=== PATIENT | female | born 1960 | race Two or more races ===

== ENCOUNTER → 2024-08-06 | Outpatient (CLI) | payer MEDICARE, MEDICAID, SELFPAY ==
--- NOTE | 2024-08-06 11:00 | XR_ITS ---
Examination: Breast ultrasound, unilateral, right complete Date and time of exam: August 06, 2024 1112 hours INDICATIONS: Mammogram 06/06/2024 14 mm focal asymmetry upper outer right breast anterior depth Technique: Real-time galdamez scale ultrasonographic imaging performed right breast including all 4 quadrants as well as nipple retroareolar and axillary region. Findings: 10:00 cyst 7 x 5 mm 11:00 cyst 5 x 3 mm No solid nodules IMPRESSION: BI-RADS Category 2: Benign findings
--- NOTE | 2024-08-06 11:30 | XR_ITS ---
Examination: Diagnostic digital mammography, unilateral, right Computer aided detection 3-D breast Tomosynthesis, unilateral Date and time of exam: 29/03/2024 1134 hours INDICATIONS: Mammogram 06/06/2024 14 mm focal asymmetry upper outer right breast anterior depth Technique: Nonmagnified MLO, CC views of the right breast have been obtained, reconstructed from 3-D Tomosynthesis images. R2 computer aided detection program utilized for evaluation of suspicious masses and/or abnormal calcifications. 3-D Tomosynthesis images obtained. Findings: The breast is heterogeneously dense, which may obscure small masses Benign calcifications. No suspicious masses Impression: BI-RADS category 2: Benign findings Return to yearly follow-up mammography
== END | disposition home or self-care (01) ==
PROVIDERS: PCP Nurse Practitioner Family; Referring Provider Nurse Practitioner Family; Visit Provider Nurse Practitioner Family
DX: R92.321 Mammographic fibroglandular density, right breast (principal); R92.1 Mammographic calcification found on diagnostic imaging of breast; N60.01 Solitary cyst of right breast
CPT/HCPCS: 76641; 77061; 77065; G0279

== ENCOUNTER 2024-08-15 06:45 | Day surgery (SDC) | payer MEDICARE, MEDICAID, SELFPAY ==
[2024-08-14 15:09] VITALS: BMI 29.2
[2024-08-15] VITALS (10 sets, daily range): BP systolic 127–161; BP diastolic 83–96; PULSE 79–88; RESP 16–23; TEMP 36.6; O2SAT 93–100; BMI 29.0
[2024-08-15] MEDS: fentaNYL CIT INJ 50 mCg/ML AMP 2ML (ASD USE ONLY) IV (07:27)
[2024-08-15] MEDS: DiphenhydrAMINE INJ 50 MG/ML VIAL 25 MG IV (07:27)
[2024-08-15] MEDS: MIDAZOLAM INJ 1 MG/ML VIAL 2 ML (ASD USE ONLY) 2 MG IV (07:32)
== END 2024-08-15 08:31 | disposition home or self-care (01) ==
PROVIDERS: PCP Nurse Practitioner Family; Referring Provider Surgery; Visit Provider Surgery
PROC: 0DBE8ZX Excision of Large Intestine, Via Natural or Artificial Opening Endoscopic, Diagnostic (ICD-10-PCS; CPT 45380; principal; 2024-08-15 08:00)
DX: K62.89 Other specified diseases of anus and rectum (principal); D12.3 Benign neoplasm of transverse colon; D12.2 Benign neoplasm of ascending colon; K64.1 Second degree hemorrhoids; K57.30 Diverticulosis of large intestine without perforation or abscess without bleeding
CPT/HCPCS: 45385; 45380; A4649; J1200; J2250; J3010

== ENCOUNTER 2024-08-22 07:52 | Outpatient (AMB) | payer MEDICARE, MEDICAID, SELFPAY ==
--- NOTE | 2024-08-21 15:29 | PD.ORTHCLVIS ---
Vital signs 08/22/24 08:02 Height 1.63 m Height Method Stated Weight 78.103 kg Weight Measurement Method Standing Scale BMI 29.4 BP 138/88 H Blood Pressure Source Automatic Cuff Blood Pressure Location Right Upper Arm Position Sitting Respiration 18 Pulse 82 Pulse Source Monitor Temp 97.3 F Temp Source Temporal Artery Scan Pulse Oximetry (%) 96 Oxygen Delivery Method Room Air Med/Allergies Allergies & Medications Allergies Tetanus Vaccines and Toxoid Allergy (Severe, Verified 08/22/24 08:03) Fainting Penicillins Allergy (Unknown, Verified 08/22/24 08:03) Rash Medication Reconciliation diclofenac sodium 1 % topical gel (Voltaren Arthritis Pain) 2 g topical QID PRN pain (scale score 1-3) #100 grams 10/16/23 [Rx Confirmed 08/22/24] meloxicam 7.5 mg tablet 7.5 mg PO QHS #45 tabs 11/09/23 [Rx Confirmed 08/22/24] aspirin 81 mg tablet,delayed release 81 mg PO QDAY #90 tabs 01/08/24 [Rx Confirmed 08/22/24] lisinopril 20 mg tablet 20 mg PO QDAY #90 tabs 01/08/24 [Rx Confirmed 08/22/24] metformin 1,000 mg tablet 1,000 mg PO BID 90 days #180 tabs 01/08/24 [Rx Confirmed 08/22/24] pravastatin 40 mg tablet 40 mg PO QHS #90 tabs 01/08/24 [Rx Confirmed 08/22/24] sertraline 50 mg tablet 50 mg PO QDAY #90 tabs 01/08/24 [Rx Confirmed 08/22/24] acetaminophen 500 mg tablet 1,000 mg (2 x 500 mg) PO q6hr PRN pain #100 tabs 06/17/24 [Rx Confirmed 08/22/24] meloxicam 7.5 mg tablet 7.5 mg PO QDAY #45 tabs 08/22/24 [Rx Confirmed 08/22/24] Subjective Visit Visit for: follow up visit Immunization / Flu Flu Vaccine in the Last 12 Months: No Flu Vaccine Exclusion Criteria: Refused by Patient History of Present Illness Chief complaint: KNEE PAIN Kassy is a pleasant 63-year-old female who presents today for evaluation of her right knee. She has had knee pain for 6 months. Atraumatic. The pain is primarily on the medial aspect of her knee. She has pain with weightbearing and when walking. Has not had any injections. She has tried ibuprofen and meloxicam. The last injection is still working Personal History Red flag PMH: none Pain Pain level (0-10): 7 Pain duration: ALL DAY Pain location: outside (lateral), anterior and posterior Pain quality: sharp, dull and aching Pain timing: night, increases with activity and stairs Associated signs & symptoms: weakness Ambulatory data Ambulatory device: none Treatments Improvement with previous injections: Yes Improvement with PT: No Improvement with NSAIDS: no Review of Systems Review of Systems: All systems negative unless otherwise noted in HPI. Exam Exam Patient is in no acute distress and is cooperative with the examination today. Breathing is nonlabored. Patient has a normal mood and affect. Bilateral extremities were evaluated and demonstrates sensation intact to light touch. Palpable pedal pulses are present. No significant edema is present. Bilateral hips were examined. The patient has no pain with log roll of the hips. Internal rotation to 30 degrees and external rotation to 30 degrees is painless. Negative FADIR. Left knee was examined today. The left knee is in reasonable alignment. Range of motion from 0-120 degrees. Knee is stable to varus and valgus as well as AP translation with <5mm. Patient has a negative McMurrays. There is no pain with patellofemoral compression and no crepitus noted. The knee is nontender to palpation. The right knee was also examined. The right knee is in [varus] alignment. Range of motion from [0-115] degrees. Knee is stable to varus and valgus as well as AP translation with <5mm. Patient has a [negative] McMurrays. There is [no] pain with patellofemoral compression and [no] crepitus noted. The knee is [tender] to palpation [medially]. X-rays demonstrate right knee arthritis Of moderate severity. Assessment and Plan Problem List (1) Osteoarthritis of right knee: Qualifiers: Osteoarthritis type: unspecified Qualified Code(s): M17.11 - Unilateral primary osteoarthritis, right knee Status: Acute Plan: 63-year-old female with right knee pain and medial tenderness. She has right knee moderate osteoarthritis. DShe did really well with the last injection and would like to see how long it works for.. She reports that she is still doing well and has minimal pain. We will see her back for repeat injection in 2 months Advanced Care Planning Discussion Advance care planning discussed with:: patient Office Procedures GNS Level of Care Nursing/Assessment Patient Status: Established Patient Nursing Assessment/Reassesment: Medication Reconciliation, Update PMH in EMR and Vital Signs Coordination of Care: Complex Care and Chronic Disease 1-5, Education Complex Pt/Fam, Consent,records obtained, informed consent, Results/Orders obtained and Staff clarify orders Established Patient Charge Established Patient Point Assignment: 95 Established Patient Point Charge: EP Level 3 (80-115) Past Medical History Past Medical History Have you ever been diagnosed with any of the following: Neurological Problems Seizures: No Cardiology Problems Hypercholesterolemia: Yes Congestive Heart Failure: No Hypertension: Yes Respiratory Problems Chronic Obstructive Pulmonary Disease (COPD): No Smoking: No Smoking Exposure: No Genital/Urinary Problems Renal Disease: No Endocrine Problems Diabetes Mellitus Type 1: No Diabetes Mellitus Type 2: Yes Other Problems Hospitalization: No Down Syndrome: No Developmental Delay: No Falls: No Blood Transfusions: No Blood Transfusion Reaction: No Anesthesia Reactions: No Chicken Pox: Yes
[2024-08-22 08:02] VITALS: BP 138/88; PULSE 82; RESP 18; TEMP 36.3; O2SAT 96; BMI 29.4
== END 2024-08-22 08:02 | disposition home or self-care (01) ==
LOC: HODSRG 07:52
PROVIDERS: PCP Nurse Practitioner Primary Care; Referring Provider Nurse Practitioner Primary Care; Supervising Provider Orthopaedic Surgery Adult Reconstructive Orthopaedic Surgery; Visit Provider Orthopaedic Surgery Adult Reconstructive Orthopaedic Surgery
DX: M17.11 Unilateral primary osteoarthritis, right knee (principal); I10 Essential (primary) hypertension; E78.00 Pure hypercholesterolemia, unspecified
CPT/HCPCS: 99213; G0463

== ENCOUNTER → 2024-08-25 | Outpatient (BNVA) | payer MEDICARE, MEDICAID, SELFPAY | END | disposition home or self-care (01) | PROVIDERS: PCP Nurse Practitioner Family; Referring Provider Nurse Practitioner Family; Visit Provider Nurse Practitioner Family | DX: Z71.2 Person consulting for explanation of examination or test findings (principal); R92.8 Other abnormal and inconclusive findings on diagnostic imaging of breast | CPT/HCPCS: 99212; G0463 ==

== ENCOUNTER → 2024-10-17 | Outpatient (BNVA) | payer MEDICARE, MEDICAID, SELFPAY | END | disposition home or self-care (01) | PROVIDERS: PCP Nurse Practitioner Family; Referring Provider Nurse Practitioner Family; Visit Provider Nurse Practitioner Family | DX: Z71.2 Person consulting for explanation of examination or test findings (principal); E11.9 Type 2 diabetes mellitus without complications; I10 Essential (primary) hypertension; E78.5 Hyperlipidemia, unspecified | CPT/HCPCS: 99212; G0463 ==

== ENCOUNTER 2024-10-23 09:17 | Outpatient (AMB) | payer MEDICARE, MEDICAID, SELFPAY ==
[2024-10-23 09:24] VITALS: BP 148/89; PULSE 78; RESP 18; TEMP 36.7; O2SAT 95; BMI 29.9
--- NOTE | 2024-10-23 09:24 | ORTHONT_ITS ---
Vital signs 10/23/24 09:24 Height 1.63 m Height Method Stated Weight 79.605 kg Weight Measurement Method Standing Scale BMI 29.9 BP 148/89 H Blood Pressure Source Automatic Cuff Blood Pressure Location Left Upper Arm Position Sitting Respiration 18 Pulse 78 Pulse Source Monitor Temp 98.1 F Temp Source Temporal Artery Scan Pulse Oximetry (%) 95 Oxygen Delivery Method Room Air Med/Allergies Allergies & Medications Allergies Tetanus Vaccines and Toxoid Allergy (Severe, Verified 10/23/24 09:25) Fainting Penicillins Allergy (Unknown, Verified 10/23/24 09:25) Rash Medication Reconciliation meloxicam 7.5 mg tablet 7.5 mg PO QHS #45 tabs 11/09/23 [Rx Confirmed 10/23/24] Held on 08/15/24. Instructions: Resume on 08/18/24. aspirin 81 mg tablet,delayed release 81 mg PO QDAY #90 tabs 01/08/24 [Rx Confirmed 10/23/24] Held on 08/15/24. Instructions: Resume on 08/18/24. lisinopril 20 mg tablet 20 mg PO QDAY #90 tabs 01/08/24 [Rx Confirmed 10/23/24] metformin 1,000 mg tablet 1,000 mg PO BID 90 days #180 tabs 01/08/24 [Rx Confirmed 10/23/24] pravastatin 40 mg tablet 40 mg PO QHS #90 tabs 01/08/24 [Rx Confirmed 10/23/24] sertraline 50 mg tablet 50 mg PO QDAY #90 tabs 01/08/24 [Rx Confirmed 10/23/24] acetaminophen 500 mg tablet 1,000 mg (2 x 500 mg) PO q6hr PRN pain #100 tabs 06/17/24 [Rx Confirmed 10/23/24] Exam Exam Patient is in no acute distress and is cooperative with the examination today. Breathing is nonlabored. Patient has a normal mood and affect. Bilateral extremities were evaluated and demonstrates sensation intact to light touch. Palpable pedal pulses are present. No significant edema is present. Bilateral hips were examined. The patient has no pain with log roll of the hips. Internal rotation to 30 degrees and external rotation to 30 degrees is painless. Negative FADIR. Left knee was examined today. The left knee is in reasonable alignment. Range of motion from 0-120 degrees. Knee is stable to varus and valgus as well as AP translation with <5mm. Patient has a negative McMurrays. There is no pain with patellofemoral compression and no crepitus noted. The knee is nontender to palpation. The right knee was also examined. The right knee is in [varus] alignment. Range of motion from [0-115] degrees. Knee is stable to varus and valgus as well as AP translation with <5mm. Patient has a [negative] McMurrays. There is [no] pain with patellofemoral compression and [no] crepitus noted. The knee is [tender] to palpation [medially]. X-rays demonstrate right knee arthritis Of moderate severity. Assessment and Plan Problem List (1) Osteoarthritis of right knee: Qualifiers: Osteoarthritis type: unspecified Qualified Code(s): M17.11 - Unilateral primary osteoarthritis, right knee Status: Acute Plan: 63-year-old female with right knee pain and medial tenderness. She has right knee moderate osteoarthritis. She did well with the last injection and would like another 1 today Recommend knee cortisone injection as patient would like to proceed with conservative treatment at this time. The risks and benefits of the procedure were reviewed with the patient and patient gave verbal consent to continue with the procedure. Procedure: performed by Dr. Whitt Using sterile technique the Right knee was thoroughly prepped with alcohol, and approximately 1 cc of Kenalog 40 mg/mL and 4 cc of 1% lidocaine was injected without resistance into the medial tibial femoral joint space. The patient tolerated the procedure. Advanced Care Planning Discussion Advance care planning discussed with:: patient Office Procedures GNS Level of Care Nursing/Assessment Patient Status: Established Patient Nursing Assessment/Reassesment: Medication Reconciliation, Update PMH in EMR and Vital Signs Coordination of Care: Complex Care and Chronic Disease 1-5, Education Complex Pt/Fam, Consent,records obtained, informed consent, Results/Orders obtained and Staff clarify orders Special Needs: Language special needs Established Patient Charge Established Patient Point Assignment: 95 Established Patient Point Charge: EP Level 3 (80-115) Medication Given Medication Given Medication Given: Yes Documented Dose Given: 4 Route: Infiitration Medication Given Medication Given Medication Given: Yes Documented Dose Given: 1 Route: Infiitration Office Meds Xylocaine 10 mg/mL (1 %) injection solution Performing Provider: Yandel Whitt MD Performing Location: [facility] Administered by: Yandel Whitt MD on 10/23/24 10:21 Dose Route Admin Location Dispensed Lot Number Expiration Date [facility] Bow [employer] Machine Tender 20 mL Infiltration 20 mL [id number] RYAN [employer]HENG KAVALENT[employer]N triamcinolone acetonide 40 mg/mL suspension for injection Performing Provider: Yandel Whitt MD Performing Location: [facility] Administered by: Yandel Whitt MD on 10/23/24 10:21 Dose Route Admin Location Dispensed Lot Number Expiration Date [facility] Bow [employer] Machine Tender 40 mg intra-articular RIGHT KNEE 1 mL [id number] 01/08/26 6767-5544-04 TEVA PARENTERAL [place] Intake Visit Data Collection New Patient or Established: Established Patient (seen at [facility] within 3 years) Reason for Visit:: 2 MONTH F/U RIGHT KNEE Seen by Clinical Staff ONLY (RN/MA): No Hub Inventory Specialist Required: Yes PCP or OBGYN visit in last 3 months: Yes Hx Now: No Do You Feel Safe at Home: Yes Authorities Contacted: N/A Questionairres Past Medical History Past Medical History Have you ever been diagnosed with any of the following: Neurological Problems Seizures: No Cardiology Problems Hypercholesterolemia: Yes Congestive Heart Failure: No Hypertension: Yes Respiratory Problems Chronic Obstructive Pulmonary Disease (COPD): No Smoking: No Smoking Exposure: No Genital/Urinary Problems Renal Disease: No Endocrine Problems Diabetes Mellitus Type 1: No Diabetes Mellitus Type 2: Yes Other Problems Hospitalization: No Down Syndrome: No Developmental Delay: No Falls: No Blood Transfusions: No Blood Transfusion Reaction: No Anesthesia Reactions: No Chicken Pox: Yes Subjective Visit Visit for: follow up visit and knee (RIGHT) Immunization / Flu Flu Vaccine in the Last 12 Months: No Flu Vaccine Exclusion Criteria: No Exclusion Criteria History of Present Illness Chief complaint: right knee Patient is a 58-year-old female with right knee pain and right knee arthritis. We previously did an injection and it llasted for quite a while. She would like the knee injection today. Pain Pain level (0-10): 5 Pain duration: ON AND OFF Pain location: anterior Pain quality: dull and aching Pain timing: night, increases with activity and stairs Associated signs & symptoms: numbness Ambulatory data Ambulatory device: none Treatments Improvement with previous injections: No Improvement with PT: No Improvement with NSAIDS: no Review of Systems Review of Systems: All systems negative unless otherwise noted in HPI.
== END 2024-10-23 09:42 | disposition home or self-care (01) ==
LOC: HODSRG 09:17
PROVIDERS: PCP Nurse Practitioner Family; Referring Provider Nurse Practitioner Family; Supervising Provider Orthopaedic Surgery Adult Reconstructive Orthopaedic Surgery; Visit Provider Orthopaedic Surgery Adult Reconstructive Orthopaedic Surgery
DX: M17.11 Unilateral primary osteoarthritis, right knee (principal); M25.561 Pain in right knee; I10 Essential (primary) hypertension; E78.00 Pure hypercholesterolemia, unspecified
CPT/HCPCS: 20610; 99213; J3301; J3490; G0463

== ENCOUNTER → 2025-03-18 | Outpatient (BNVA) | payer MEDICARE, MEDICAID, SELFPAY | END | disposition home or self-care (01) | PROVIDERS: PCP Nurse Practitioner Primary Care; Referring Provider Nurse Practitioner Primary Care; Visit Provider Nurse Practitioner Primary Care | DX: Z71.2 Person consulting for explanation of examination or test findings (principal); E11.9 Type 2 diabetes mellitus without complications; E78.5 Hyperlipidemia, unspecified | CPT/HCPCS: 99212; G0463 ==

== ENCOUNTER 2025-03-26 09:41 | Outpatient (AMB) | payer MEDICARE, MEDICAID, SELFPAY ==
--- NOTE | 2025-03-26 10:02 | PD.ORTHCLVIS ---
Vital signs 03/26/25 10:11 Height 1.63 m Height Method Measured Weight 79.464 kg Weight Measurement Method Standing Scale BMI 29.9 BP 160/92 H Blood Pressure Source Automatic Cuff Blood Pressure Location Left Upper Arm Position Sitting Respiration 18 Pulse 76 Pulse Source Monitor Temp 97.7 F Temp Source Temporal Artery Scan Pulse Oximetry (%) 95 Oxygen Delivery Method Room Air Med/Allergies Allergies & Medications Allergies Tetanus Vaccines and Toxoid Allergy (Severe, Verified 03/26/25 10:26) Fainting Penicillins Allergy (Unknown, Verified 03/26/25 10:26) Rash Medication Reconciliation meloxicam 7.5 mg tablet 7.5 mg PO QHS #45 tabs 11/09/23 [Rx Confirmed 03/26/25] Held on 08/15/24. Instructions: Resume on 08/18/24. sertraline 50 mg tablet 50 mg PO QDAY #90 tabs 01/08/24 [Rx Confirmed 03/26/25] acetaminophen 500 mg tablet 1,000 mg (2 x 500 mg) PO q6hr PRN pain #100 tabs 06/17/24 [Rx Confirmed 03/26/25] aspirin 81 mg tablet,delayed release 81 mg PO QDAY #90 tabs 03/18/25 [Rx Confirmed 03/26/25] lisinopril 20 mg tablet 20 mg PO QDAY #90 tabs 03/18/25 [Rx Confirmed 03/26/25] metformin 1,000 mg tablet 1,000 mg PO BID 90 days #180 tabs 03/18/25 [Rx Confirmed 03/26/25] pravastatin 40 mg tablet 40 mg PO QHS #90 tabs 03/18/25 [Rx Confirmed 03/26/25] Exam Exam Patient is in no acute distress and is cooperative with the examination today. Breathing is nonlabored. Patient has a normal mood and affect. Bilateral extremities were evaluated and demonstrates sensation intact to light touch. Palpable pedal pulses are present. No significant edema is present. Bilateral hips were examined. The patient has no pain with log roll of the hips. Internal rotation to 30 degrees and external rotation to 30 degrees is painless. Negative FADIR. Left knee was examined today. The left knee is in reasonable alignment. Range of motion from 0-120 degrees. Knee is stable to varus and valgus as well as AP translation with <5mm. Patient has a negative McMurrays. There is no pain with patellofemoral compression and no crepitus noted. The knee is nontender to palpation. The right knee was also examined. The right knee is in [varus] alignment. Range of motion from [0-115] degrees. Knee is stable to varus and valgus as well as AP translation with <5mm. Patient has a [negative] McMurrays. There is [no] pain with patellofemoral compression and [no] crepitus noted. The knee is [tender] to palpation [medially]. X-rays demonstrate right knee arthritis Of moderate severity. Assessment and Plan Problem List (1) Osteoarthritis of right knee: Qualifiers: Osteoarthritis type: unspecified Qualified Code(s): M17.11 - Unilateral primary osteoarthritis, right knee Status: Acute Plan: 63-year-old female with right knee pain and medial tenderness. She has right knee moderate osteoarthritis. She did well with the last injection and would like another 1 today Recommend knee cortisone injection as patient would like to proceed with conservative treatment at this time. The risks and benefits of the procedure were reviewed with the patient and patient gave verbal consent to continue with the procedure. Procedure: performed by Dr. Whitt Using sterile technique the Right knee was thoroughly prepped with alcohol, and approximately 1 cc of Kenalog 40 mg/mL and 4 cc of 1% lidocaine was injected without resistance into the medial tibial femoral joint space. The patient tolerated the procedure. Advanced Care Planning Discussion Advance care planning discussed with:: patient Office Procedures GNS Level of Care Nursing/Assessment Patient Status: Established Patient Nursing Assessment/Reassesment: Medication Reconciliation, Update PMH in EMR and Vital Signs Coordination of Care: Complex Care and Chronic Disease 1-5, Education Complex Pt/Fam, Consent,records obtained, informed consent, Lab and Imaging orders, Results/Orders obtained and Staff clarify orders Special Needs: Language special needs Established Patient Charge Established Patient Point Assignment: 110 Established Patient Point Charge: EP Level 3 (80-115) Surgical Proc/IM SQ injection Major Surgical Procedure: Yes (KNEE INJECTION) Medication Given Medication Given Medication Given: Yes Documented Dose Given: 4 Route: Infiitration Medication Given Medication Given Medication Given: Yes Documented Dose Given: 1 Route: Infiitration Office Meds Xylocaine 10 mg/mL (1 %) injection solution Performing Provider: Yandel Whitt MD Performing Location: [facility] Administered by: Yandel Whitt MD on 03/26/25 10:27 Dose Route Admin Location Dispensed Lot Number Expiration Date [facility] Status Controller 20 mL Infiltration KNEE 20 mL [id number] 06/09/28 [facility]137-[facility] triamcinolone acetonide 40 mg/mL suspension for injection Performing Provider: Yandel Whitt MD Performing Location: [facility] Administered by: Yandel Whitt MD on 03/26/25 10:27 Dose Route Admin Location Dispensed Lot Number Expiration Date [facility] Status Controller 40 mg intra-articular KNEE 1 mL [id number] 10/10/26 67513-943-65 TRINIDAD MYERS [place] Intake Visit Data Collection New Patient or Established: Established Patient (seen at [facility] within 3 years) Reason for Visit:: RIGHT KNEE PAIN Seen by Clinical Staff ONLY (RN/MA): No Tissue Coordinator Required: Yes PCP or OBGYN visit in last 3 months: Yes Hx Now: No Do You Feel Safe at Home: Yes Authorities Contacted: N/A Questionairres Past Medical History Past Medical History Have you ever been diagnosed with any of the following: Neurological Problems Seizures: No Cardiology Problems Hypercholesterolemia: Yes Congestive Heart Failure: No Hypertension: Yes Respiratory Problems Chronic Obstructive Pulmonary Disease (COPD): No Smoking: No Smoking Exposure: No Genital/Urinary Problems Renal Disease: No Endocrine Problems Diabetes Mellitus Type 1: No Diabetes Mellitus Type 2: Yes Other Problems Hospitalization: No Down Syndrome: No Developmental Delay: No Falls: No Blood Transfusions: No Blood Transfusion Reaction: No Anesthesia Reactions: No Chicken Pox: Yes Subjective Visit Visit for: follow up visit and knee (RIGHT) Immunization / Flu Flu Vaccine in the Last 12 Months: No Flu Vaccine Exclusion Criteria: No Exclusion Criteria History of Present Illness Chief complaint: right knee Patient is a 58-year-old female with right knee pain and right knee arthritis. We previously did an injection and it lasted for quite a while. She would like a repeat knee injection today. Pain Pain level (0-10): 5 Pain duration: ON AND OFF Pain location: anterior Pain quality: dull and aching Pain timing: night, increases with activity and stairs Associated signs & symptoms: numbness Ambulatory data Ambulatory device: none Treatments Improvement with previous injections: No Improvement with PT: No Improvement with NSAIDS: no Review of Systems Review of Systems: All systems negative unless otherwise noted in HPI.
[2025-03-26 10:11] VITALS: BP 160/92; PULSE 76; RESP 18; TEMP 36.5; O2SAT 95; BMI 29.9
--- NOTE | 2025-03-26 10:14 | XR_ITS ---
Examination: Bilateral knees single view PA lateral axial right knee 3 views TECHNIQUE: Bilateral AP knees standing single view Right knee PA flexion standing, lateral standing, axial right knee 3 views total 4 views Date and time: March 26, 2025 1045 hours INDICATIONS: Right knee pain beginning 2 years ago. FINDINGS: Prominent osteopenia. Advanced narrowing medial joint space right knee Moderate osteoarthritis right patellofemoral joint Moderate narrowing medial joint space left knee IMPRESSION: Advanced narrowing medial joint space right knee
== END 2025-03-26 10:20 | disposition home or self-care (01) ==
LOC: HODSRG 09:41
PROVIDERS: PCP Nurse Practitioner Family; Referring Provider Nurse Practitioner Family; Supervising Provider Orthopaedic Surgery Adult Reconstructive Orthopaedic Surgery; Visit Provider Orthopaedic Surgery Adult Reconstructive Orthopaedic Surgery
DX: M17.11 Unilateral primary osteoarthritis, right knee (principal); I10 Essential (primary) hypertension; E78.00 Pure hypercholesterolemia, unspecified; E11.9 Type 2 diabetes mellitus without complications; M25.561 Pain in right knee
CPT/HCPCS: 20610; 73564; 99213; J3301; J3490; G0463

== ENCOUNTER 2025-07-02 13:57 | Outpatient (AMB) | payer MEDICARE, MEDICAID, SELFPAY ==
--- NOTE | 2025-07-02 14:37 | ORTHONT_ITS ---
Vital signs 07/02/25 14:42 Height 1.63 m Height Method Measured Weight 79.464 kg Weight Measurement Method Standing Scale BMI 29.9 BP 138/75 H Blood Pressure Source Automatic Cuff Blood Pressure Location Left Upper Arm Position Sitting Respiration 18 Pulse 80 Pulse Source Monitor Temp 97.6 F Temp Source Temporal Artery Scan Pulse Oximetry (%) 95 Oxygen Delivery Method Room Air Med/Allergies Allergies & Medications Allergies Tetanus Vaccines and Toxoid Allergy (Severe, Verified 07/02/25 14:43) Fainting Penicillins Allergy (Unknown, Verified 07/02/25 14:43) Rash Medication Reconciliation meloxicam 7.5 mg tablet 7.5 mg PO QHS #45 tabs 11/09/23 [Rx Confirmed 07/02/25] Held on 08/15/24. Instructions: Resume on 08/18/24. sertraline 50 mg tablet 50 mg PO QDAY #90 tabs 01/08/24 [Rx Confirmed 07/02/25] acetaminophen 500 mg tablet 1,000 mg (2 x 500 mg) PO q6hr PRN pain #100 tabs 06/17/24 [Rx Confirmed 07/02/25] aspirin 81 mg tablet,delayed release 81 mg PO QDAY #90 tabs 03/18/25 [Rx Confirmed 07/02/25] lisinopril 20 mg tablet 20 mg PO QDAY #90 tabs 03/18/25 [Rx Confirmed 07/02/25] metformin 1,000 mg tablet 1,000 mg PO BID 90 days #180 tabs 03/18/25 [Rx Confirmed 07/02/25] pravastatin 40 mg tablet 40 mg PO QHS #90 tabs 03/18/25 [Rx Confirmed 07/02/25] Exam Exam Patient is in no acute distress and is cooperative with the examination today. Breathing is nonlabored. Patient has a normal mood and affect. Bilateral extremities were evaluated and demonstrates sensation intact to light touch. Palpable pedal pulses are present. No significant edema is present. Bilateral hips were examined. The patient has no pain with log roll of the hips. Internal rotation to 30 degrees and external rotation to 30 degrees is painless. Negative FADIR. Left knee was examined today. The left knee is in reasonable alignment. Range of motion from 0-120 degrees. Knee is stable to varus and valgus as well as AP translation with <5mm. Patient has a negative McMurrays. There is no pain with patellofemoral compression and no crepitus noted. The knee is nontender to palpation. The right knee was also examined. The right knee is in [varus] alignment. Range of motion from [0-115] degrees. Knee is stable to varus and valgus as well as AP translation with <5mm. Patient has a [negative] McMurrays. There is [no] pain with patellofemoral compression and [no] crepitus noted. The knee is [tender] to palpation [medially]. X-rays demonstrate right knee arthritis Of significant severity with complete obliteration of the medial joint space Assessment and Plan Problem List (1) Osteoarthritis of right knee: Qualifiers: Osteoarthritis type: unspecified Qualified Code(s): M17.11 - Unilateral primary osteoarthritis, right knee Status: Acute Plan: 63-year-old female with right knee pain and medial tenderness. She has right knee severe osteoarthritis. She no longer wants injections as they are not providing great relief. We thus consider total knee replacement as a reasonable option. She is already tried anti-inflammatories The nature and purpose of the total knee replacement, alternative method(s) of treatment, the material risks involved, and the possibility of complications were fully explained to the patient. The patient does NOT have any of the following contraindications to TKA: - Active infection of the knee joint, OR - Active systemic bacteremia, OR - Active skin infection or open wound at surgical site, OR - Neuropathic arthritis, OR - Severe, rapidly progressive neurological disease, OR - Severe medical condition that makes risks of surgery outweigh the potential benefit The patient was told the most common risks and complications associated with a total knee replacement include, but are not limited to: blood clots in the leg, fatal pulmonary embolism, dislocation of the prosthesis, intraoperative and postoperative fractures of the femur or tibia, infection, failure of the prosthesis or grafting materials, complications from anesthesia, reactions to blood transfusions, postoperative leg length inequality, instability of the knee replacement, nerve damage or injury, vascular injury, delayed wound healing, infection, other injury or even . In addition, there are risks associated with anesthesia given during this operation. Also, the patient was told that after undergoing a total knee replacement there may still be persistent pain or disability. The patient was informed that the success of this operation in part depends upon the mechanical devices which are going to be implanted and that these devices can fail or malfunction, and may need to be repaired or replaced and there are no guarantees as to the longevity of this device or its parts and that it or its parts could fail prematurely. The patient was also notified that during the course of surgery, there may be a need to use bone graft from donors, and that any bone graft used will be carefully screened for communicable diseases, including AIDS, hepatitis, Andrew-Creutzfeldt, or other diseases, but despite the screening procedures, there is a small chance that they could contract one of these diseases. Finally, the patient was asked to follow completely and fully with all advice and recommended treatments, and that recovery and ultimate outcome are affected by their compliance with recommended treatment. We discussed the risks, benefits and treatment alternatives, and the patient is interested in proceeding with surgery. We will try to set this up as expeditiously as possible. Advanced Care Planning Discussion Advance care planning discussed with:: patient Office Procedures GNS Level of Care Nursing/Assessment Patient Status: Established Patient Nursing Assessment/Reassesment: Medication Reconciliation, Update PMH in EMR and Vital Signs Coordination of Care: Complex Care and Chronic Disease 1-5, Education Complex Pt/Fam, Consent,records obtained, informed consent, Results/Orders obtained and Staff clarify orders Special Needs: Language special needs Established Patient Charge Established Patient Point Assignment: 95 Established Patient Point Charge: EP Level 3 (80-115) MA Intake Visit Data Collection New Patient or Established: Established Patient (seen at [facility] within 3 years) Reason for Visit:: 3 MONTH KNEE INJECTIONS/XRAY RESULTS Seen by Clinical Staff 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 PCP or OBGYN visit in last 3 months: Yes Hx Now: No Do You Feel Safe at Home: Yes Authorities Contacted: N/A Questionairres Past Medical History Past Medical History Have you ever been diagnosed with any of the following: Neurological Problems Seizures: No Cardiology Problems Hypercholesterolemia: Yes Congestive Heart Failure: No Hypertension: Yes Respiratory Problems Chronic Obstructive Pulmonary Disease (COPD): No Smoking: No Smoking Exposure: No Genital/Urinary Problems Renal Disease: No Endocrine Problems Diabetes Mellitus Type 1: No Diabetes Mellitus Type 2: Yes Other Problems Hospitalization: No Down Syndrome: No Developmental Delay: No Falls: No Blood Transfusions: No Blood Transfusion Reaction: No Anesthesia Reactions: No Chicken Pox: Yes Subjective Visit Visit for: follow up visit and knee Immunization / Flu Flu Vaccine in the Last 12 Months: No Flu Vaccine Exclusion Criteria: No Exclusion Criteria History of Present Illness Chief complaint: RIGHT KNEE INJECTIONS/XRAY RESULTS Patient is a 64-year-old female with right knee pain and right knee arthritis. We previously did an injection and it lasted for quite a while. The last injections have provided more than 3 months of relief. SHe reports the pain is more that she wants to put up with and wants to pursue right total knee replacement. She has had multiple injections and anti-inflammatories previously Pain Pain level (0-10): 10 Pain duration: ON AND OFF Pain location: anterior Pain quality: dull and aching Pain timing: night, increases with activity and stairs Associated signs & symptoms: numbness Ambulatory data Ambulatory device: none Treatments Improvement with previous injections: No Improvement with PT: No Improvement with NSAIDS: no Review of Systems Review of Systems: All systems negative unless otherwise noted in HPI.
[2025-07-02 14:42] VITALS: BP 138/75; PULSE 80; RESP 18; TEMP 36.4; O2SAT 95; BMI 29.9
== END 2025-07-02 14:57 | disposition home or self-care (01) ==
LOC: HODSRG 13:57
PROVIDERS: PCP Nurse Practitioner Family; Referring Provider Nurse Practitioner Family; Supervising Provider Orthopaedic Surgery Adult Reconstructive Orthopaedic Surgery; Visit Provider Orthopaedic Surgery Adult Reconstructive Orthopaedic Surgery
DX: M25.561 Pain in right knee (principal); M17.11 Unilateral primary osteoarthritis, right knee; I10 Essential (primary) hypertension; E11.9 Type 2 diabetes mellitus without complications; Z79.84 Long term (current) use of oral hypoglycemic drugs
CPT/HCPCS: 99213; G0463

== ENCOUNTER → 2025-07-23 | Outpatient (BNVA) | payer MEDICARE, MEDICAID, SELFPAY | END | disposition home or self-care (01) | PROVIDERS: PCP Nurse Practitioner Family; Referring Provider Nurse Practitioner Family; Visit Provider Nurse Practitioner Family | DX: Z01.818 Encounter for other preprocedural examination (principal); S83.203D Other tear of unspecified meniscus, current injury, right knee, subsequent encounter; X58.XXXD Exposure to other specified factors, subsequent encounter; E78.5 Hyperlipidemia, unspecified; E11.9 Type 2 diabetes mellitus without complications; I10 Essential (primary) hypertension; Z11.3 Encounter for screening for infections with a predominantly sexual mode of transmission; Z23 Encounter for immunization; Z12.39 Encounter for other screening for malignant neoplasm of breast | CPT/HCPCS: 90471; 90677; 90686; 93005; 99215; G0008; G0009 ==

== ENCOUNTER → 2025-08-04 | Outpatient (BNVA) | payer MEDICARE, MEDICAID, SELFPAY | END | disposition home or self-care (01) | PROVIDERS: PCP Nurse Practitioner Family; Referring Provider Nurse Practitioner Family; Visit Provider Nurse Practitioner Family | DX: S83.203D Other tear of unspecified meniscus, current injury, right knee, subsequent encounter (principal); X58.XXXD Exposure to other specified factors, subsequent encounter; E78.5 Hyperlipidemia, unspecified; Z01.818 Encounter for other preprocedural examination; E11.9 Type 2 diabetes mellitus without complications; I10 Essential (primary) hypertension | CPT/HCPCS: 99214 ==

== ENCOUNTER → 2025-08-10 | Outpatient (BNVA) | payer MEDICARE, MEDICAID, SELFPAY | END | disposition home or self-care (01) | PROVIDERS: PCP Nurse Practitioner Family; Referring Provider Nurse Practitioner Family; Visit Provider Nurse Practitioner Family | DX: Z71.2 Person consulting for explanation of examination or test findings (principal); I10 Essential (primary) hypertension; R79.1 Abnormal coagulation profile | CPT/HCPCS: 99214 ==

== ENCOUNTER → 2025-08-24 | Outpatient (BNVA) | payer MEDICARE, MEDICAID, SELFPAY | END | disposition home or self-care (01) | PROVIDERS: PCP Nurse Practitioner Family; Referring Provider Nurse Practitioner Family; Visit Provider Nurse Practitioner Family | DX: I10 Essential (primary) hypertension (principal) | CPT/HCPCS: 99214 ==

== ENCOUNTER → 2025-09-01 | Outpatient (CLI) | payer MEDICARE, MEDICAID, SELFPAY ==
--- NOTE | 2025-09-01 13:00 | XR_ITS ---
Examination: CT right lower extremity without intravenous contrast, 2-D sagittal reconstructions. 2-D coronal reconstructions. 3-D reconstructions. Date and time of exam: September 01, 2025, 1317 hours INDICATIONS: Diagnosis unilateral primary osteoarthritis right knee right knee pain 2 years CTDI: vol (mGy): 12.8 DLP: (mGycm): 908 Technique: Multiple 1.25 mm axial sections of the right lower extremity without intravenous contrast have been obtained. 2-D sagittal and coronal reconstructions have been obtained. 3-D reconstructions have been obtained. Low dose protocols were performed. One or more of the following dose reduction techniques were used; automated exposure control, adjustment of the mA and/or KV according to patient size, use of iterative reconstruction technique. Findings: Prominent osteopenia Mild to moderate narrowing right hip joint No right hip fracture or dislocation no avascular necrosis Moderate to advanced narrowing medial joint space right knee Moderate osteoarthritis lateral and patellofemoral joints No fracture or dislocation IMPRESSION: Moderate to advanced narrowing medial joint space right knee
== END | disposition home or self-care (01) ==
LOC: CCTX 12:58
PROVIDERS: PCP Nurse Practitioner Family; Referring Provider Orthopaedic Surgery Adult Reconstructive Orthopaedic Surgery; Visit Provider Orthopaedic Surgery Adult Reconstructive Orthopaedic Surgery
DX: M25.861 Other specified joint disorders, right knee (principal)
CPT/HCPCS: 73700

== ENCOUNTER → 2025-09-07 | Outpatient (BNVA) | payer MEDICARE, MEDICAID, SELFPAY | END | disposition home or self-care (01) | PROVIDERS: PCP Nurse Practitioner Family; Referring Provider Nurse Practitioner Family; Visit Provider Nurse Practitioner Family | DX: I10 Essential (primary) hypertension (principal) | CPT/HCPCS: 99213 ==

== ENCOUNTER 2025-09-08 10:27 | Outpatient (AMB) | payer MEDICARE, MEDICAID, SELFPAY ==
--- NOTE | 2025-09-08 10:52 | ORTHONT_ITS ---
Vital signs 09/08/25 10:53 Height 1.63 m Height Method Stated Weight 80.031 kg Weight Measurement Method Standing Scale BMI 30.1 BP 162/96 H Blood Pressure Source Automatic Cuff Blood Pressure Location Left Upper Arm Position Sitting Respiration 18 Pulse 85 Pulse Source Monitor Temp 97.7 F Temp Source Temporal Artery Scan Pulse Oximetry (%) 96 Oxygen Delivery Method Room Air Med/Allergies Allergies & Medications Allergies Tetanus Vaccines and Toxoid Allergy (Severe, Verified 09/08/25 10:53) Fainting Penicillins Allergy (Unknown, Verified 09/08/25 10:53) Rash Medication Reconciliation aspirin 81 mg tablet,delayed release 81 mg PO QDAY #90 tabs 08/04/25 [Rx Confirmed 09/08/25] metformin 1,000 mg tablet 1,000 mg PO BID 90 days #180 tabs 08/04/25 [Rx Confirmed 09/08/25] rosuvastatin 40 mg tablet 40 mg PO QDAY #90 tabs 08/04/25 [Rx Confirmed 09/08/25] cholecalciferol (vitamin D3) 1,250 mcg (50,000 unit) capsule 1,250 mcg PO QWEEK #12 caps 08/10/25 [Rx Confirmed 09/08/25] blood pressure monitor #1 ea 08/24/25 [Rx Confirmed 09/08/25] lisinopril 40 mg tablet 40 mg PO QDAY #90 tabs 09/07/25 [Rx Confirmed 09/08/25] Exam Exam Patient is in no acute distress and is cooperative with the examination today. Breathing is nonlabored. Patient has a normal mood and affect. Bilateral extremities were evaluated and demonstrates sensation intact to light touch. Palpable pedal pulses are present. No significant edema is present. Bilateral hips were examined. The patient has no pain with log roll of the hips. Internal rotation to 30 degrees and external rotation to 30 degrees is painless. Negative FADIR. Left knee was examined today. The left knee is in reasonable alignment. Range of motion from 0-120 degrees. Knee is stable to varus and valgus as well as AP translation with <5mm. Patient has a negative McMurrays. There is no pain with patellofemoral compression and no crepitus noted. The knee is nontender to pa lpation. The right knee was also examined. The right knee is in [varus] alignment. Range of motion from [0-115] degrees. Knee is stable to varus and valgus as well as AP translation with <5mm. Patient has a [negative] McMurrays. There is [no] pain with patellofemoral compression and [no] crepitus noted. The knee is [tender] to palpation [medially]. X-rays demonstrate right knee arthritis Of significant severity with complete obliteration of the medial joint space Assessment and Plan Problem List (1) Osteoarthritis of right knee: Qualifiers: Osteoarthritis type: unspecified Qualified Code(s): M17.11 - Unilateral primary osteoarthritis, right knee Status: Acute Plan: 63-year-old female with right knee pain and medial tenderness. She has right knee severe osteoarthritis. She no longer wants injections as they are not providing great relief. We thus consider total knee replacement as a reasonable option. She is already tried anti-inflammatories The nature and purpose of the total knee replacement, alternative method(s) of treatment, the material risks involved, and the possibility of complications were fully explained to the patient. The patient does NOT have any of the following contraindications to TKA: - Active infection of the knee joint, OR - Active systemic bacteremia, OR - Active skin infection or open wound at surgical site, OR - Neuropathic arthritis, OR - Severe, rapidly progressive neurological disease, OR - Severe medical condition that makes risks of surgery outweigh the potential benefit The patient was told the most common risks and complications associated with a total knee replacement include, but are not limited to: blood clots in the leg, fatal pulmonary embolism, dislocation of the prosthesis, intraoperative and postoperative fractures of the femur or tibia, infection, failure of the prosthesis or grafting materials, complications from anesthesia, reactions to blood transfusions, postoperative leg length inequality, instability of the knee replacement, nerve damage or injury, vascular injury, delayed wound healing, infection, other injury or even . In addition, there are risks associated with anesthesia given during this operation. Also, the patient was told that after undergoing a total knee replacement there may still be persistent pain or disability. The patient was informed that the success of this operation in part depends upon the mechanical devices which are going to be implanted and that these devices can fail or malfunction, and may need to be repaired or replaced and there are no guarantees as to the longevity of this device or its parts and that it or its parts could fail prematurely. The patient was also notified that during the course of surgery, there may be a need to use bone graft from donors, and that any bone graft used will be carefully screened for communicable diseases, including AIDS, hepatitis, Andrew-Creutzfeldt, or other diseases, but despite the screening procedures, there is a small chance that they could contract one of these diseases. Finally, the patient was asked to follow completely and fully with all advice and recommended treatments, and that recovery and ultimate outcome are affected by their compliance with recommended treatment. We discussed the risks, benefits and treatment alternatives, and the patient is interested in proceeding with surgery. We will try to set this up as expeditiously as possible. Advanced Care Planning Discussion Advance care planning discussed with:: patient Office Procedures GNS Level of Care Nursing/Assessment Patient Status: Established Patient Nursing Assessment/Reassesment: Medication Reconciliation, Update PMH in EMR and Vital Signs Coordination of Care: Complex Care and Chronic Disease 1-5, Education Complex Pt/Fam, Consent,records obtained, informed consent, Results/Orders obtained and Staff clarify orders Established Patient Charge Established Patient Point Assignment: 95 Established Patient Point Charge: EP Level 3 (80-115) MA Intake Visit Data Collection New Patient or Established: Established Patient (seen at [facility] within 3 years) Reason for Visit:: PRE OP R TKA SX 09/23 Seen by Clinical Staff 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 PCP or OBGYN visit in last 3 months: Yes Hx Now: No Do You Feel Safe at Home: Yes Authorities Contacted: N/A Questionairres Past Medical History Past Medical History Have you ever been diagnosed with any of the following: Neurological Problems Seizures: No Cardiology Problems Hypercholesterolemia: Yes Congestive Heart Failure: No Hypertension: Yes Respiratory Problems Chronic Obstructive Pulmonary Disease (COPD): No Smoking: No Smoking Exposure: No Genital/Urinary Problems Renal Disease: No Endocrine Problems Diabetes Mellitus Type 1: No Diabetes Mellitus Type 2: Yes Other Problems Hospitalization: No Down Syndrome: No Developmental Delay: No Falls: No Blood Transfusions: No Blood Transfusion Reaction: No Anesthesia Reactions: No Chicken Pox: Yes Subjective Visit Visit for: follow up visit and knee Immunization / Flu Flu Vaccine in the Last 12 Months: No Flu Vaccine Exclusion Criteria: No Exclusion Criteria History of Present Illness Chief complaint: RIGHT KNEE INJECTIONS/XRAY RESULTS Patient is a 64-year-old female with right knee pain and right knee arthritis. We previously did an injection and it lasted for quite a while. The last injections have provided more than 3 months of relief. SHe reports the pain is more that she wants to put up with and wants to pursue right total knee replacement. She has had multiple injections and anti-inflammatories previously Pain Pain level (0-10): 10 Pain duration: ON AND OFF Pain location: anterior Pain quality: dull and aching Pain timing: night, increases with activity and stairs Associated signs & symptoms: numbness Ambulatory data Ambulatory device: none Treatments Improvement with previous injections: No Improvement with PT: No Improvement with NSAIDS: no Review of Systems Review of Systems: All systems negative unless otherwise noted in HPI.
[2025-09-08 10:53] VITALS: BP 162/96; PULSE 85; RESP 18; TEMP 36.5; O2SAT 96; BMI 30.1
== END 2025-09-08 11:08 | disposition home or self-care (01) ==
LOC: HODSRG 10:27
PROVIDERS: PCP Nurse Practitioner Family; Referring Provider Nurse Practitioner Family; Supervising Provider Orthopaedic Surgery Adult Reconstructive Orthopaedic Surgery; Visit Provider Orthopaedic Surgery Adult Reconstructive Orthopaedic Surgery
DX: M17.11 Unilateral primary osteoarthritis, right knee (principal); M25.561 Pain in right knee; I10 Essential (primary) hypertension; E11.9 Type 2 diabetes mellitus without complications; Z79.84 Long term (current) use of oral hypoglycemic drugs
CPT/HCPCS: 99213; G0463